=== PATIENT | male | born 1975 | race Caucasian/White ===

== ENCOUNTER 2021-08-01 10:10 | Emergency (ER) | payer OTHER, SELFPAY ==
[2021-08-01 10:11] VITALS: BP 140/122; PULSE 97; RESP 18; TEMP 36.6; O2SAT 100; BMI 24.3
--- NOTE | 2021-08-01 10:33 | CT_ITS ---
STUDY: CT FACIAL BONES WITHOUT CONTRAST REASON FOR EXAM: Male, 45 years old. Trauma RADIATION DOSAGE (If Supplied By Facility): CTDIvol = ( 29.38 ) mGy, DLP = ( 584.19 ) mGycm TECHNIQUE: The patient was scanned in a multi detector CT scanner. Sagittal and coronal images were reconstructed. Individualized dose optimization techniques were used for this CT. COMPARISON: None. FINDINGS: Normal soft tissue structures. Mildly depressed fracture of the right orbital floor. Fracture of the nasal septum with right sided deviation. Nasal fracture. Air-fluid level in the right maxillary sinus. Partial opacification of the ethmoid sinuses. Fluid is seen within the nasal fossa. CT/Sinus/Facial Bone IMPRESSION: Mildly depressed fracture of the right orbital floor as well as fracture of the nasal septum with right-sided deviation. Nasal fracture. Partial opacification of the ethmoid sinuses. Fluid is seen within the nasal fossa. Electronically Signed: Herson Max MD at 11:25 EDT , Service support ,
--- NOTE | 2021-08-01 10:33 | CT_ITS ---
STUDY: CT BRAIN WITHOUT CONTRAST REASON FOR EXAM: Male, 45 years old. Fall from 7'' high. Bloody nose. RADIATION DOSAGE (If Supplied By Facility): CTDIvol = ( 44.99 ) mGy, DLP = ( 812.98 ) mGycm TECHNIQUE: Transaxial CT imaging of the brain was performed without administration of intravenous contrast material. Individualized dose optimization techniques were used for this CT. COMPARISON: No relevant priors. FINDINGS: Comminuted nasal fracture. Comminuted fracture of the nasal septum with a right deviation. Normal calvarium. Normal size ventricles and extra-axial spaces for the patient''s age. Normal white matter tracts of the cerebral hemispheres. Normal basal ganglia and thalami. Normal brainstem. Normal cerebellum. There is no intracranial hemorrhage. There are no findings of an acute ischemic infarction. Air fluid level in the right maxillary sinus. Mildly depressed fracture of the right orbital floor. Partial opacification of the ethmoid sinuses. Fluid is seen within the nasal cavities more prominent on the right side. CT/Brain/Head without Contrast IMPRESSION: Comminuted fracture of the nasal bone as well as the nasal septum. Fracture of the right orbital floor. Electronically Signed: Herson aMx MD at 11:23 EDT , Service support ,
--- NOTE | 2021-08-01 10:34 | ED.VIS.FALL ---
HPI HPI - Fall History of Present Illness Chief Complaint: Fall Detail of Chief Complaint: From a ladder at work about 6 feet off the ground. 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 Also hypothyroid. Was on a ladder today at work about 6 feet off the ground fell off the ladder struck his face injuring his nose causing bleeding. In his right shoulder. Denies any LOC but said he was dazed. He is on no blood thinners. Denies any abdominal or back pain. This is a workers comp injury. Prior similar symptoms: No Recent Illness/Hospitalization: No [facility] Medical History (Updated 08/01/21 @ 14:[address] Robin Colmenares MD) Hypothyroidism Home Medications hydrocodone-acetaminophen 1 tab PO Q4H PRN 7 Days #30 tab 08/01/21 [Rx Last Taken Unknown] levothyroxine 50 mcg PO DAILY 08/01/21 [History Last Taken Unknown] Allergy/AdvReac Type Severity Reaction Status Date / Time amoxicillin Allergy Shortness Verified 08/01/21 10:50 of breath Social History Smoking Status: Light Smoker (<10/day) ROS ROS ED ROS Narrative Recent URI symptoms. Cough and nasal congestion. Review of Systems ROS Unobtainable: Denies due to encephalopathy Constitutional Constitutional ED: Denies fever(s) Eyes Eyes: Denies change in vision ENT ENT ED: Reports rhinorrhea; Denies ear pain or sore throat Cardiovascular Cardiovascular: Denies chest pain Respiratory/Chest Respiratory/Chest: Reports cough; Denies dyspnea Gastrointestinal Gastrointestinal: Denies abdominal pain, diarrhea, nausea or vomiting Genitourinary Genitourinary ED: Denies dysuria Musculoskeletal Musculoskeletal: Reports myalgias Integumentary Denies rash Neurologic Neurologic: Denies headache(s) Psychiatric Psychiatric: Denies depression Endocrine Endocrinology: Denies polyuria Hematologic/Lymphatic Hematologic/Lymphatic: Denies easy bruising Allergic/Immunologic Allergic/Immunologic ED: Denies urticaria EXAM Physical Exam Narrative Exam Narrative: Middle-age male sitting upright in bed vital signs are stable afebrile. Initial blood pressure 140/122 secondary to pain. HEENT exam is got tender swollen on nerves appears to be a nasal bridge fracture. He has blood in both nares. Minimal active bleeding from the left. Dentition intact. Dry reactive light. Scalp nontender no signs of trauma. C-spine nontender trachea midline. Lungs clear to auscultation bilaterally. Heart regular rhythm no murmur. Chest wall nontender. Abdomen soft nontender normal bowel sounds no peritoneal signs. Well-healed midline prior surgical scar from splenectomy. Pelvic girdle intact. Both lower extremities are nontender full range of motion. 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 Right shoulder is held in a regular position. Tender to palpation. With decreased range of motion. Distal humerus, elbow forearm wrist and hand the right otherwise are unremarkable. Neurologically is awake and alert. He is answering questions following commands. GCS of 15. Const Vital Signs: 08/01/21 10:11 08/01/21 10:51 Temperature 98 F Temperature Source Temporal Pulse Rate 97 Respiratory Rate 18 Respiratory Effort Normal Non-Labored Blood Pressure 140/122 H Blood Pressure Mean 128 Pulse Ox 100 Oxygen Delivery Method Room Air Positive well nourished and well developed; Negative for obese, cachectic, contractures or unkempt General Appearance ED: well developed; Negative for unkempt, cachectic or contractures Nutritional Appearance: Negative for cachectic or obese HEENT HEENT Narrative: Nasal fracture. Midline nasal tenderness and deformity. Blood in both nares. Minimal bleeding on the left. trauma and tenderness; Negative for atraumatic Eyes PERRL and EOMs intact bilaterally General Eye ED: Negative for pale conjunctiva Neck full ROM, no lymphadenopathy and supple General: Negative for tenderness Chest Wall inspection of chest normal and palpation of chest normal Resp normal respiratory effort, no retractions and clear to auscultation bilaterally Auscultation: Negative for rales, rhonchi, wheezes or diminished lung sounds Cardio regular rate, regular rhythm, S1 normal heart sound, S2 normal heart sound and no murmurs GI non-tender, non-distended and no masses Inspection: Negative for abdominal distention Auscultation: normoactive bowel sounds Palpation: soft; Negative for guarding or rebound tenderness present Back/Spine no CVA tenderness Cervical Spine: Negative for cervical spine tenderness Thoracic Spine / Upper Back: Negative for thoracic spinal tenderness Lumbar Spine / Lower Back: Negative for lumbar spinal tenderness Neuro oriented x3, CN's II-XII intact bilaterally, moves all extremities and no focal motor deficits [place] Coma Scale: document GCS findings Spontaneous Obeys Commands Oriented 15 Sensorium / Orientation: alert, oriented to person, oriented to place and oriented to time; Negative for orientation impaired, confused, lethargic or stuporous Motor Exam: Negative for general weakness Psych mental status grossly normal and thought process normal Appearance: Negative for unkempt Mood & Affect: Negative for depressed Skin Lesions: no lesions Rashes: no rashes MDM MDM MDM Narrative Medical decision making narrative: Middle-age male fell from a ladder at work. Has obvious facial trauma. Suspect nasal fracture. CT of the brain and facial bones to be obtained. He also has an injury to his right shoulder with decreased range of motion and pain on palpation which will be x-rayed. Patient will be treated with IV morphine and Zofran for his shoulder pain. CAT scan of the right shoulder was obtained showing a comminuted fracture of the scapula with extension into the glenoid fossa and a first-degree AC separation. Patient's been treated with doses of morphine for pain. I spoke to orthopedics prior to the CAT scan. He will be placed in a sling and outpatient follow-up with [facility] for pain. Radiography Diagnostic Testing: Clinical Impression(s) from Imaging Studies Brain CT 08/01/21 10:33 IMPRESSION: Comminuted fracture of the nasal bone as well as the nasal septum. Fracture of the right orbital floor. Electronically Signed: Herson Max MD at 11:23 EDT , Service support , Facial/Sinus 08/01/21 10:33 IMPRESSION: Mildly depressed fracture of the right orbital floor as well as fracture of the nasal septum with right-sided deviation. Nasal fracture. Partial opacification of the ethmoid sinuses. Fluid is seen within the nasal fossa. Electronically Signed: Herson Max MD at 11:25 EDT , Service support , Chest X-Ray 08/01/21 10:55 IMPRESSION: No acute abnormality is seen. Electronically Signed: Herson Max MD at 11:26 EDT , Service support , Shoulder X-Ray 08/01/21 10:55 IMPRESSION: Fracture of the right glenoid extending into the posterior aspect of the lateral aspect of the right scapula.. Type II right AC joint separation. Electronically Signed: Herson Max MD at 11:27 EDT , Service support , Upper Extremity CT 08/01/21 12:48 IMPRESSION: Comminuted nondisplaced fracture of the right scapula with extension into the anterior aspect of the glenoid with avulsion fracture. Type I right AC joint subluxation. Electronically Signed: Herson Max MD at 13:55 EDT , Service support , Discharge Plan Triage Chief Complaint: Fall ED Provider: Robin Colmenares Dx/Rx/DC Orders Clinical Impression: Fall, Fracture of right shoulder, AC separation, Closed fracture nasal bone, Fracture of orbit, right, closed, Closed head injury Instructions: Facial Fracture, Trauma Head, ED Fracture, Shoulder Prescriptions: New hydrocodone-acetaminophen 5-325 mg tablet 1 tab PO Q4H PRN (Reason: pain) 7 Days Qty: 30 RF: 0 No Action levothyroxine 50 mcg tablet 50 mcg PO DAILY RF: 0 Primary Care Provider: Randal Camargo NP Referrals: Christopher Easley MD [STAFF PHYSICIAN] - As soon as possible Norman Basurto MD [STAFF PHYSICIAN] - As soon as possible Randal Camargo TRANSACTIONAL ATTORNEY, TRANSACTIONAL ATTORNEY-C [Primary Care Provider] - As Needed Activity Restrictions/Additional Instructions: Sling to keep your right shoulder mobile. When you fell you have the following injuries: 1. Right shoulder and scapular fracture 2. AC separation 3. Nasal fracture 4. Right orbit fracture 5. Head injury Ice to right shoulder. [facility] and [facility] for pain. Call and follow-up with Dr. Martinez Basurto of [facility] to evaluate you for your shoulder fracture and AC separation Call and follow-up with Dr. Lewis Berumen of [facility]. For evaluation of your nasal fracture and fracture of your orbit of your right eye. Disposition Disposition: Home, Self Care
[2021-08-01] MEDS: Ondansetron 4 MG/2 ML Vial IV (10:47)
[2021-08-01] MEDS: morphine 8 MG/ML Syringe 6 MG IV ×2 (10:47→12:59)
--- NOTE | 2021-08-01 10:55 | RAD_ITS ---
STUDY: X-RAY CHEST REASON FOR EXAM: Male, 45 years old. FALL -- INCLUDE STERNAL VIEW TECHNIQUE: PA and lateral views of the chest. COMPARISON: None. FINDINGS: The lungs are clear and expanded. There is no demonstrated pleural abnormality. Normal size heart. Normal mediastinum and jo ann. Normal visualized pulmonary arteries. There is atherosclerotic tortuosity of the aortic arch and descending thoracic aorta. There are diffuse degenerative changes of the visualized thoracic spine. Normal visualized ribs, clavicles, and shoulders. Surgical clips are seen in the left upper quadrant. RAD/Chest PA and Lateral IMPRESSION: No acute abnormality is seen. Electronically Signed: Herson Max MD at 11:26 EDT , Service support ,
--- NOTE | 2021-08-01 10:55 | RAD_ITS ---
STUDY: X-RAY - RIGHT SHOULDER REASON FOR EXAM: Male, 45 years old. Trauma TECHNIQUE: 2 view(s) of the shoulder. COMPARISON: None. FINDINGS: There is a fracture of the lateral aspect of the right scapula at the level of the glenoid fossa. There is no widening of the coracoclavicular distance. There is widening of the AC joint, but without displacement of the clavicle or widening of the coracoclavicular distance, consistent with a Type II acromioclavicular joint separation. Normal acromion. Normal humeral head and visualized proximal humerus. The soft tissue structures are unremarkable. Normal visualized pulmonary apex. RAD/Shoulder min 2 Views IMPRESSION: Fracture of the right glenoid extending into the posterior aspect of the lateral aspect of the right scapula.. Type II right AC joint separation. Electronically Signed: Herson Max MD at 11:27 EDT , Service support ,
--- NOTE | 2021-08-01 12:48 | CT_ITS ---
STUDY: CT SCAN SHOULDER RIGHT REASON FOR EXAM: Male, 45 years old. Right shoulder and scapula fracture RADIATION DOSAGE (If Supplied By Facility): CTDIvol = ( 26.35 ) mGy, DLP = ( 600.97 ) mGycm. Individualized dose optimization techniques were used for this CT.? TECHNIQUE: Multiple axial tomographic images were obtained without intravenous contrast administration. Sagittal and coronal reconstruction was obtained as well. COMPARISON: Comparison is made with prior radiograph examination done earlier in the day. FINDINGS: There is evidence of a comminuted fracture involving the superior lateral aspect of the scapula with extension to the anterior aspect of the glenoid with the avulsion type fracture. Minimal widening of the right acromioclavicular joint. Soft tissue swelling. CT/Extremity Upper without Contra IMPRESSION: Comminuted nondisplaced fracture of the right scapula with extension into the anterior aspect of the glenoid with avulsion fracture. Type I right AC joint subluxation. Electronically Signed: Herson Max MD at 13:55 EDT , Service support ,
--- NOTE | 2021-08-01 14:35 | ED.RN ---
Pt ambulatory to car with escort. Gait was steady. discussed home care, ice application, altering home furniture to facilitate easier standing and self care. verbalized understanding.
== END 2021-08-01 14:37 | disposition home or self-care (01) ==
PROVIDERS: Emergency Provider Emergency Medicine; PCP Nurse Practitioner Primary Care
DX: S02.31XA Fracture of orbital floor, right side, initial encounter for closed fracture (principal); S02.2XXA Fracture of nasal bones, initial encounter for closed fracture; S42.141A Displaced fracture of glenoid cavity of scapula, right shoulder, initial encounter for closed fracture; S42.191A Fracture of other part of scapula, right shoulder, initial encounter for closed fracture; E03.9 Hypothyroidism, unspecified; F17.200 Nicotine dependence, unspecified, uncomplicated; Z79.899 Other long term (current) drug therapy; W11.XXXA Fall on and from ladder, initial encounter; Y93.89 Activity, other specified; Y92.89 Other specified places as the place of occurrence of the external cause; Y99.0 Civilian activity done for income or pay
CPT/HCPCS: 70450; 70486; 71046; 73030; 73200; 96374; 96375; 96376; 99282; A4216; J2405

== ENCOUNTER 2021-08-15 08:24 | Day surgery (SDC) | payer OTHER, SELFPAY ==
[2021-08-15] VITALS (9 sets, daily range): BP systolic 115–132; BP diastolic 82–96; PULSE 69–85; RESP 16; TEMP 36.2–36.9; O2SAT 92–99; BMI 27.0
[2021-08-15] MEDS: Oxymetazoline 0.05% 1 SPRAY SPRAY.BTL NASAL (09:05)
[2021-08-15] MEDS: Lactated Ringers 1,000 ML 15 ML IV ×2 (09:30→10:50)
--- NOTE | 2021-08-15 09:35 | PCM.DC.SUM ---
Providers Primary Care Physician: Randal Camargo NP-C Reason For Visit: CLOSED NASAL REDUCTION, SEPTAL REDUCTION Medications at Discharge Home Medications hydrocodone-acetaminophen 1 tab PO Q4H PRN 7 Days #30 tab 08/01/21 levothyroxine 50 mcg PO DAILY 08/01/21 albuterol 90 mcg INHALATION DAILY PRN PRN 08/12/21 Weight / BMI Weight Weight: 83.1 kg Body Mass Index (BMI) 27.0 ABG / Lab / Microbiology Data Microbiology: Microbiology 08/12/21 11:40 Interface Orders SARS-CoV-2 Antigen (Rapid) - Final D/C Instructions Discharge Diet: No restrictions Discharge Activity: Return to Normal Activity Additional Activity Instructions: NO NOSEBLOWING. Start saline nasal spray (3 sprays each nostril 3x/day) on 08/16/21. Keep external splint on as long as possible. Meaningful Use Info Meaningful Use Diagnoses (Choose all that apply): None applicable Discharge Plan Admission Attending Provider: Berto Hanna Primary Care Provider: Randal Camargo DIRECTOR [employer] Discharge Orders/Prescriptions Prescriptions: No Action levothyroxine 50 mcg tablet 50 mcg PO DAILY RF: 0 hydrocodone-acetaminophen 5-325 mg tablet 1 tab PO Q4H PRN (Reason: pain) 7 Days Qty: 30 RF: 0 albuterol 90 mcg/actuation Aerosol 90 mcg INHALATION DAILY PRN PRN (Reason: Shortness Of Breath Or Wheezing) RF: 0
[2021-08-15] MEDS: Oxymetazoline 0.05% 1 SPRAY SPRAY.BTL 15 SPRAY (09:50)
[2021-08-15] MEDS: Lidocaine 1% /Epi 1:100 (50ml) 50 ML VIAL (09:50)
[2021-08-15] MEDS: Mupirocin Ointment 22gm Tube 1 APPLIC (10:07)
--- NOTE | 2021-08-15 10:15 | PCM.OPRPT ---
Report of Operation Date of Procedure: 08/15/21 Pre-Operative Diagnosis: nasal fracture septal fracture Post-Operative Diagnosis: same Surgery/Procedure Performed:: Closed septal reduction Closed nasal reduction Surgeon: Berto Hanna Type of Anesthesia: General Anesthesiologist: Manuel Castellanos Estimated Blood Loss (mL): minimal Description of Procedure: The patient was taken off room on 08/15/2021. He was placed in supine position on the operating table. He was given sufficient general endotracheal anesthesia. The head of bed was elevated 30 degrees. Patient was draped sterilely. Afrin pledgets were placed in the patient's nasal cavity bilaterally. I then injected 1% lidocaine with epinephrine into the septum bilaterally. Next the pledgets were removed. I placed pressure on the left nasal dorsum and reduced the nasal bones to the midline position. Next Afrin pledgets were reinserted into the patient's nose. A Joker elevator was placed on the left-hand side of the septum and the septum was reduced to the midline (I kept the pledget between the septal mucosa and the Joker elevator). Next pledgets were used for hemostasis. The pledgets were then removed. Hemostasis was achieved. The septum was in the midline. Next, Dang nasal splints were applied to each side of the septum and sewn through and through with 3-0 silk. Steri-Strips and a Trimble nasal splint were applied to the external nose. The Patient was then awoken and brought to recovery room in stable condition. Blood loss minimal, replacement none. Sponge, needle and instrument count were correct at the end of the procedure.
[2021-08-15] MEDS: Acetaminophen 325 MG Tablet 650 MG PO (12:21)
== END 2021-08-15 12:57 | disposition home or self-care (01) ==
LOC: SDC 08:28 → AC 09:01
PROVIDERS: PCP Nurse Practitioner Primary Care; Referring Provider Otolaryngology; Visit Provider Otolaryngology
PROC: 0NSBXZZ Reposition Nasal Bone, External Approach (ICD-10-PCS; CPT 21320; principal; 2021-08-15 09:50)
DX: S02.2XXA Fracture of nasal bones, initial encounter for closed fracture (principal); J34.2 Deviated nasal septum; S02.31XA Fracture of orbital floor, right side, initial encounter for closed fracture; S02.80XA Fracture of other specified skull and facial bones, unspecified side, initial encounter for closed fracture; W11.XXXA Fall on and from ladder, initial encounter; Y93.89 Activity, other specified; Y92.89 Other specified places as the place of occurrence of the external cause; Y99.0 Civilian activity done for income or pay; Z87.891 Personal history of nicotine dependence
CPT/HCPCS: 21320; 21337; 87426; C9803; J7120; J2405